=== PATIENT | male | born 1955 | race Two or more races ===

== ENCOUNTER 2017-04-08 11:31 | Inpatient (IN) | payer MEDICARE, OTHER ==
[~2017-04-08] VITALS: Ht 175.3 cm; Wt 104.6 kg
[2017-04-08] MEDS ORDERED: SODIUM CHLORIDE 0.9% 1,000ML IVBOLUS ONE (13:30)
[2017-04-08] MEDS ORDERED: MECLIZINE CHEWABLE 25 MG TAB PO ONE (13:30)
[2017-04-08 13:33] LABS: BLOOD UREA NITROGEN 11 mg/dL (7-18)
[2017-04-08] MEDS ORDERED: MECLIZINE CHEWABLE 25 MG TAB ONE (13:55)
[2017-04-08] MEDS ORDERED: GADOBUTROL 10 MMOL/10 ML PFS ONE (16:52)
[2017-04-08] MEDS ORDERED: ACETAMINOPHEN 325 MG TABLET PO PRN (17:00)
[2017-04-08] MEDS ORDERED: hydrALAzine 20 MG/ML, 1ML IVPush PRN (17:00)
[2017-04-08] MEDS ORDERED: ONDANSETRON 2MG/ML, 2ML IVPush PRN (17:00)
[2017-04-08] MEDS ORDERED: morphine SULFATE 10 MG/ML, 1ML IVPush PRN (17:00)
[2017-04-08 18:02] VITALS: BP 160/99
[2017-04-08 19:54] VITALS: BP 131/78
[2017-04-08 22:03] VITALS: BP_SYST 121; BP_SYST 131; BP_SYST 142; BP_DIAS 79; BP_DIAS 84; BP_DIAS 89
[2017-04-08] MEDS: LISINOPRIL 10 MG TABLET PO SCH (22:05)
[2017-04-09 05:19] VITALS: BP 110/66
[2017-04-09 06:42] LABS: ASPARTATE AMINO TRANSFERASE 22 U/L (15-37); BLOOD UREA NITROGEN 15 mg/dL (7-18)
[2017-04-09 07:44] VITALS: BP 113/70
[2017-04-09] MEDS ORDERED: SODIUM CHLORIDE 0.9% 1,000 ML IV SCH (08:30)
[2017-04-09] MEDS: LISINOPRIL 10 MG TABLET PO SCH ×2 (09:56→09:58)
[2017-04-09 09:58] VITALS: BP 105/64
[2017-04-09] MEDS ORDERED: LISI5TAB7 PO (10:12)
== END 2017-04-09 11:45 | disposition home or self-care (01) | DRG 149 ==
LOC: ED 11:57 → EDIP 15:54 → SUATTDRO 16:24 → 5SO 18:04 → DCLOUNGE 04-09 11:28
PROVIDERS: ADMIT Internal Medicine; ATTEND Internal Medicine
DX: R42 Dizziness and giddiness (principal); R00.1 Bradycardia, unspecified; R11.2 Nausea with vomiting, unspecified; H93.19 Tinnitus, unspecified ear; H91.90 Unspecified hearing loss, unspecified ear; I10 Essential (primary) hypertension; R55 Syncope and collapse; Z87.891 Personal history of nicotine dependence
CPT/HCPCS: 36415; 70450; 70553; 71010; 80048; 80053; 81003; 82040; 84443; 85025; 87040; 93005; 96360; A9585; J7030